=== PATIENT | female | born 1980 | race Hispanic/Latino ===

== ENCOUNTER 2019-04-25 00:20 | Inpatient (IN) ==
[2019-04-25] MEDS ORDERED: KEFZOL 1 GM/D5W 1 GM/50 ML IVPB IV PRN (01:43)
[2019-04-25] MEDS ORDERED: REGLAN PO PRN (01:43)
[2019-04-25] MEDS ORDERED: PEPCID IV PRN (01:43)
[2019-04-25] MEDS ORDERED: TYLENOL PO PRN (01:43)
[2019-04-25] MEDS ORDERED: STADOL IV PRN (01:43)
[2019-04-25] MEDS ORDERED: ZOFRAN IV PRN (01:43)
[2019-04-25] MEDS ORDERED: PEPCID PO PRN ×2 (01:43)
[2019-04-25] MEDS ORDERED: LR 1,000 ML IV SCH (01:45)
[2019-04-25] MEDS ORDERED: SODIUM CHLORIDE 0.9% INJ SCH (01:45)
[2019-04-25] MEDS ORDERED: PITOCIN 30 UNITS/NS 30 UNIT/500 ML IV.SOLN IV SCH ×2 (01:45→03:45)
[2019-04-25] MEDS ORDERED: XYLOCAINE-MPF 1% INJ PRN ×2 (01:46→03:40)
[2019-04-25] MEDS ORDERED: MINERAL OIL TOP PRN (01:46)
[2019-04-25 02:10] LABS: URINE SOURCE VOIDED
[2019-04-25] MEDS ORDERED: AMPICILLIN 2 GM/NS 2 GM/100 ML IVPB IV ONE (02:12)
[2019-04-25 02:18] LABS: BASO# 0.02 X1000 (0.0-0.2); BASO% 0.3 % (0.0-0.8); EOS# 0.15 X1000 (0.0-0.7); EOS% 1.9 % (0.0-10.0); HEMATOCRIT 38.1 % (37.0-47.0); HEMOGLOBIN 12.2 g/dL (12.0-16.0); IMM GRAN# 0.09 X1000 (0.0-0.04); IMM GRAN% 1.1 % (0.0-0.5); LYMPH# 2.51 X1000 (1.2-3.4); LYMPH% 31.5 % (20.5-51.1); MCH 25.3 PG (27-31); MCV 78.9 FL (81-99); MONO# 0.45 X1000 (0.11-0.59); MONO% 5.6 % (1.7-9.3); MPV 12.8 FL (7.4-10.4); NEUT# 4.75 X1000 (1.4-6.5); NEUT% 59.6 % (42.2-75.2); PLT 172 X1000 (130-400); RBC 4.83 XMIL (4.2-5.4); RDW 17.5 % (11.5-14.5); WBC 7.97 X1000 (4.8-10.8)
[2019-04-25 02:19] LABS: BILIRUBIN URINE NEGATIVE (NEGATIVE); BLOOD URINE NEGATIVE (NEGATIVE); CLARITY CLEAR (CLEAR); COLOR YELLOW; GLUCOSE URINE NEGATIVE (NEGATIVE); KETONE URINE NEGATIVE (NEGATIVE); LEUKOCYTES URINE NEGATIVE (NEGATIVE); NITRITE URINE NEGATIVE (NEGATIVE); PH URINE 6.5; PROTEIN URINE NEGATIVE (NEGATIVE); SP GRAVITY URINE 1.015; UROBILINOGEN URINE 1 mg/dL
[2019-04-25 02:46] LABS: RPR NON-REACTIVE (NONREACTIVE)
[2019-04-25 02:59] LABS: RAPID HIV PRESUMPTIVE NEGATIVE
[2019-04-25] MEDS ORDERED: M-M-R II VACCINE SUBQ ONE (03:40)
[2019-04-25] MEDS ORDERED: ATARAX PO PRN (03:40)
[2019-04-25] MEDS ORDERED: BOOSTRIX VACCINE IM ONE (03:40)
[2019-04-25] MEDS ORDERED: BENADRYL IV PRN (03:40)
[2019-04-25] MEDS ORDERED: BENADRYL PO PRN (03:40)
[2019-04-25] MEDS ORDERED: PERI MEDS (DERMOPLAST/NUPERCAINAL/TUCKS) MISC PRN (03:40)
[2019-04-25] MEDS ORDERED: CYTOTEC PO PRN (03:40)
[2019-04-25] MEDS ORDERED: HYDROXYZINE IM PRN (03:40)
[2019-04-25] MEDS ORDERED: PITOCIN IM PRN (03:40)
[2019-04-25] MEDS ORDERED: MINERAL OIL PO PRN (03:40)
[2019-04-25] MEDS ORDERED: AMBIEN PO PRN (03:40)
[2019-04-25] MEDS ORDERED: PITOCIN 20 UNITS/NS 20 UNITS/1,000 ML IV.SOLN IV SCH (03:45)
--- NOTE | 2019-04-25 05:55 | HISTORY AND PHYSICAL ---
HISTORY OF PRESENT ILLNESS: The patient is a 39-year-old G2, P1, 0-0-1 who presents at 39 weeks and 3 days based off of the ultrasound performed at an unknown location with SISI (estimated due date) of 04/29 per patient in active labor. The patient reports good movement, regular contractions. Denies leakage of fluid or vaginal bleeding. The patient has received no care with current , and no ultrasound on file to confirm SISI (estimated due date). PAST MEDICAL HISTORY: None. MEDICATIONS: vitamins. PAST SURGICAL HISTORY: None. OBSTETRICAL HISTORY: G2, P1, 0-0-1. One full-term vaginal delivery. Denies any prior complications. 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 FAMILY HISTORY: Noncontributory. SOCIAL HISTORY: Denies tobacco, alcohol or drug use. ALLERGIES: No known drug allergies. PHYSICAL EXAMINATION: VITAL SIGNS: Temperature 98.3 degrees, pulse rate 78, respiration rate 18, blood pressure 124/67, O2 sats 100 percent on room air, weight 160 pounds, height 4 feet 9 inches, and BMI 34.6 kg/m2. GENERAL: No acute distress. Alert, awake, and oriented x3. CARDIOVASCULAR: Regular rate and rhythm. Positive S1, S2. RESPIRATORY: Clear to auscultation bilaterally. ABDOMEN: Gravid. Fundal height measuring 38 to 39 cm. Soft. Nontender to palpation. EXTREMITIES: No calf tenderness. PELVIC: Sterile vaginal exam. 6 cm dilated, 100% effaced, -1 station. Electronic monitoring category 1 tracing. 130 beats per minute baseline. Moderate variability, positive accelerations, negative decelerations. [place] contractions q. 2 to 3 minutes. LABORATORY: WBC 7.97, hemoglobin 12.2, hematocrit 38.1, and platelets 172,000. ASSESSMENT: Mrs. Amado is a 39-year-old G2, P1, 0-0-1 at 39 weeks and 3 days per said SISI of 04/29, who presents in active labor with no care. PLAN: 1. Admit to Labor and Delivery for anticipated vaginal delivery. 2. Obtain routine labor labs, and no care labs. 3. Continue with monitoring. 4. Active management with artificial rupture of membrane and possible augmentation with Pitocin as needed. 5. Estimated weight 7-1/2 pounds. 6. Anticipate vaginal delivery. 7. Plan for GBS prophylaxis with IV ampicillin.
[2019-04-25] MEDS ORDERED: AMPICILLIN 1 GM/NS 1 GM/50 ML IVPB IV SCH (06:12)
--- NOTE | 2019-04-25 07:43 | OPERATIVE NOTE ---
PROCEDURE DATE: 04/25/2019 PROCEDURE PERFORMED: Spontaneous vaginal delivery. SURGEON: Dr. Santos Bower. COGENERATION TECHNICIAN: None. DESCRIPTION OF PROCEDURE: Patient delivered a viable 39 weeks and 3 days weighing 8 pounds 10 ounces with Apgars of 6 and 9 at 1 and 5 minutes respectively. The vertex was delivered spontaneously over intact perineum. One nuchal cord was identified and reduced. The anterior shoulder was delivered atraumatically by maternal expulsive efforts with the assistance of downward traction. The posterior shoulder delivered with maternal expulsive efforts with upward traction. The remainder of the fetus delivered spontaneously upon delivery. The cord was clamped and cut, and the was handed to waiting document management specialist staff. Cord blood was obtained for blood gases. The placenta delivered spontaneously intact with a three-vessel cord to enhance uterine contraction. IV oxytocin was administered. The cervix, vagina and perineum were inspected for lacerations. No laceration was identified. The patient tolerated the procedure, and all counts were correct x2. Estimated Blood Loss was 200 mL.
--- NOTE | 2019-04-25 08:52 | OB/GYN PROGRESS NOTE ---
Progress Note OB - . Patient Problems: Current Active Problems Problem Status Onset (spontaneous vaginal delivery) Acute No care in current in third trimester Acute OB Progress Note: Vital Signs - 24 hr 04/25/19 00:32 04/25/19 01:04 04/25/19 07:05 Temperature 98.3 F 97.2 F L 97.2 F L Pulse Rate 78 71 65 Respiratory Rate 16 18 16 Blood Pressure 124/67 130/78 90/55 O2 Sat by Pulse Oximetry 100 99 100 Laboratory Results - last 24 hr 04/25/19 04/25/19 04/25/19 01:33 01:55 01:55 WBC RBC Hgb Hct MCV MCH MCHC RDW Std Deviation Plt Count MPV Immature Gran % (Auto) Neut % (Auto) Lymph % (Auto) Saline % (Auto) Eos % (Auto) Baso % (Auto) Immature Gran # (Auto) Neut # (Auto) Lymph # (Auto) Saline # (Auto) Eos # (Auto) Baso # (Auto) Glucose 91 Urine Source VOIDED Urine Color YELLOW Urine Clarity CLEAR Urine pH 6.5 Ur Specific [place] 1.015 Urine Protein NEGATIVE Urine Ketones NEGATIVE Urine Blood NEGATIVE Urine Nitrite NEGATIVE Urine Bilirubin NEGATIVE Urine Urobilinogen 1 Urine WBC NEGATIVE Urine Glucose NEGATIVE RPR NON-REACTIVE HIV 1&2 Antibody Rapid PRESUMPTIVE NEGATIVE Blood Type Antibody Screen 04/25/19 04/25/19 01:55 01:55 WBC 7.97 RBC 4.83 Hgb 12.2 Hct 38.1 MCV 78.9 L MCH 25.3 L MCHC 32.0 L RDW Std Deviation 17.5 H Plt Count 172 MPV 12.8 H Immature Gran % (Auto) 1.1 H Neut % (Auto) 59.6 Lymph % (Auto) 31.5 Saline % (Auto) 5.6 Eos % (Auto) 1.9 Baso % (Auto) 0.3 Immature Gran # (Auto) 0.09 H Neut # (Auto) 4.75 Lymph # (Auto) 2.51 Saline # (Auto) 0.45 Eos # (Auto) 0.15 Baso # (Auto) 0.02 Glucose Urine Source Urine Color Urine Clarity Urine pH Ur Specific [place] Urine Protein Urine Ketones Urine Blood Urine Nitrite Urine Bilirubin Urine Urobilinogen Urine WBC Urine Glucose RPR HIV 1&2 Antibody Rapid Blood Type O POSITIVE Antibody Screen NEGATIVE 39yo now s/p , term delivery on 04/25/2019. 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 Gen: NAD; AAOx3 CV: RRR Pulm: CTAB; no rhonchi, wheezing, or rales Abd: soft, no TTP; fundus firm Ext: no LE TTP Labs: reviewed A&P: 39yo s/p at 39w3d, 1. PPD#0 -No concerns 2. No care - consultation
--- NOTE | 2019-04-25 09:08 | EKG Report ---
Test Performed on : 04/25/2019 07:22:08 AM Test Reason : ER Blood Pressure : / mmHG Vent. Rate : 081 BPM Atrial Rate : 081 BPM P-R Int : 126 ms QRS Dur : 098 ms QT Int : 368 ms P-R-T Axes : -12 073 053 degrees QTc Int : 427 ms * Pediatric ECG analysis * Normal sinus rhythm. Normal ECG No previous ECGs available Confirmed by Porfirio PETERSEN, Richardson Ramirez ([id number]) on 04/26/2019 7:42:16 PM
[2019-04-25] MEDS: MOTRIN PO PRN ×2 (09:12→20:29)
[2019-04-25] MEDS: PRECARE PO SCH (09:13)
[2019-04-25 15:16] LABS: RUBELLA SCREEN NON IMMUNE (IMMUNE)
[2019-04-25 16:05] LABS: HIV ANTIBODY SCREEN SEE COMMENTS
[2019-04-25] MEDS: PERICOLACE PO SCH (20:29)
[2019-04-26 07:06] LABS: BASO# 0.03 X1000 (0.0-0.2); BASO% 0.3 % (0.0-0.8); EOS# 0.16 X1000 (0.0-0.7); EOS% 1.4 % (0.0-10.0); HEMATOCRIT 31.8 % (37.0-47.0); HEMOGLOBIN 9.7 g/dL (12.0-16.0); IMM GRAN# 0.07 X1000 (0.0-0.04); IMM GRAN% 0.6 % (0.0-0.5); LYMPH# 4.13 X1000 (1.2-3.4); LYMPH% 34.9 % (20.5-51.1); MCH 24.9 PG (27-31); MCHC 30.5 g/dL (33-37); MCV 81.7 FL (81-99); MONO# 0.75 X1000 (0.11-0.59); MONO% 6.3 % (1.7-9.3); MPV 12.4 FL (7.4-10.4); NEUT# 6.68 X1000 (1.4-6.5); NEUT% 56.5 % (42.2-75.2); PLT 159 X1000 (130-400); RBC 3.89 XMIL (4.2-5.4); RDW 17.5 % (11.5-14.5); WBC 11.82 X1000 (4.8-10.8)
--- NOTE | 2019-04-26 07:34 | OB/GYN PROGRESS NOTE ---
Progress Note OB - . Patient Problems: Current Active Problems Problem Status Onset (spontaneous vaginal delivery) Acute No care in current in third trimester Acute OB Progress Note: Vital Signs - 24 hr 04/25/19 16:15 04/25/19 20:00 04/25/19 23:45 Temperature 98.1 F 96.6 F L Pulse Rate 65 68 61 Respiratory Rate 16 18 18 Blood Pressure 98/55 109/56 93/50 O2 Sat by Pulse Oximetry 99 98 98 Laboratory Results - last 24 hr 04/25/19 04/25/19 04/26/19 01:55 02:59 05:35 WBC 11.82 H RBC 3.89 L Hgb 9.7 L D Hct 31.8 L MCV 81.7 MCH 24.9 L MCHC 30.5 L RDW Std Deviation 17.5 H Plt Count 159 MPV 12.4 H Immature Gran % (Auto) 0.6 H Neut % (Auto) 56.5 Lymph % (Auto) 34.9 [place] % (Auto) 6.3 Eos % (Auto) 1.4 Baso % (Auto) 0.3 Immature Gran # (Auto) 0.07 H Neut # (Auto) 6.68 H Lymph # (Auto) 4.13 H [place] # (Auto) 0.75 H Eos # (Auto) 0.16 Baso # (Auto) 0.03 HIV 1&2 Antibody Screen SEE COMMENTS Rubella Immunity Screen NON IMMUNE H 39 yo PPD#1 s/p at term, no PNC, RNI Patient seen and examined. No complaints this AM. Pain controlled. Minimal lochia. She is ambulating without difficulty. Baby is doing well. It has been difficult to communicate with patient and family due to dialect they speak. Physical Exam-General - PHYSICAL EXAM-ADULT Initial Vital Signs Reviewed: Yes - CONSTITUTIONAL General Appearance: appears well, alert, no apparent distress - EYES Eyes: PERRL/EOMI - HEAD, EARS, NOSE, MOUTH & THROAT HENMT: normocephalic/atraumatic - RESPIRATORY Respiratory: lungs clear, normal breath sounds, no respiratory distress - CARDIOVASCULAR Cardiovascular: normal peripheral pulses, regular rate, rhythm, no edema - GASTROINTESTINAL (ABDOMEN) Abdominal Exam: normal bowel sounds, non tender, soft (fundus firm, below umbilicus) - MUSCULOSKELETAL Extremity: normal range of motion, non-tender Assessment/Plan - Assessment/Plan Assessment: 39 yo PPD#1 s/p with no PNC, RNI 1. HD stable, PP Hgb 9.1 2. Routine PP care 3. Encourage ambulation 4. SS consult for no PNC 5. MMR vaccine prior to hospital discharge
[2019-04-26 08:03] LABS: HEPATITIS B SURFACE ANTIGEN SEE COMMENTS
[2019-04-26] MEDS: PERICOLACE PO SCH (21:54)
[2019-04-27 07:53] VITALS: BP 113/63
--- NOTE | 2019-04-27 08:36 | DISCHARGE SUMMARY ---
ADMISSION DATE: 04/25/2019 DISCHARGE DATE: 04/27/2019 The patient is a 39-year-old, 2, para 1 now 2, presented at 39 weeks and 3 days gestation with no care in active phase of labor. She underwent a normal labor followed by normal spontaneous vaginal delivery. Please see separate operative note. She delivered a 7 1/2 pound without difficulty or complication. Treated with group B strep prophylaxis during labor. Her course was uncomplicated. day #1 she is afebrile with stable vital signs. She is ambulating, voiding, tolerating a regular diet. Hemoglobin 9.7. On day #2 ambulating, voiding, tolerating regular diet. Vital signs stable afebrile. She is discharged home in stable condition. She is asked to follow up in the office for care in 6 weeks. Call the office for pain, fever greater than 100.4, abnormal uterine bleeding. Maintain pelvic rest and regular diet. Continue vitamins and iron. A prescription for Motrin provided. Discharged home in stable condition.
[2019-04-27] MEDS: PRECARE PO SCH ×2 (08:54→08:55)
[2019-04-27] MEDS ORDERED: FLU VACCINE IM ONE (09:52)
== END 2019-04-27 10:55 | disposition home or self-care (01) | DRG 807 ==
LOC: P.ED 00:20 → P.OPLD 00:57 → P.LD 00:59
PROVIDERS: ADMIT Obstetrics & Gynecology; ATTEND Obstetrics & Gynecology